=== PATIENT | male | born 2000 | race Caucasian/White ===

== ENCOUNTER 2021-10-24 05:13 | Emergency (ER) | payer MEDICAID ==
[~2021-10-24] VITALS: Ht 182.9 cm; Wt 90.9 kg
[2021-10-24] MEDS ORDERED: AMOX-101 PO (05:51)
[2021-10-24 05:58] VITALS: BP 134/84
== END 2021-10-24 05:59 | disposition home or self-care (01) ==
LOC: ER 05:14
DX: S01.511A Laceration without foreign body of lip, initial encounter (principal); Z79.1 Long term (current) use of non-steroidal anti-inflammatories (NSAID); W19.XXXA Unspecified fall, initial encounter; Y93.89 Activity, other specified; Y92.89 Other specified places as the place of occurrence of the external cause; Y99.8 Other external cause status
CPT/HCPCS: 12011; 99283

== ENCOUNTER 2021-10-26 18:28 | Emergency (ER) | payer MEDICAID ==
[~2021-10-26 18:28] MED LIST: AMOX-101 PO
== END 2021-10-26 18:36 | disposition left against medical advice (07) ==
LOC: ER 18:28
DX: Z53.21 Procedure and treatment not carried out due to patient leaving prior to being seen by health care provider (principal)